=== PATIENT | male | born 1955 | race African-American/Black ===

== ENCOUNTER 2019-02-17 00:55 | Emergency (ER) | payer MEDICARE ==
[~2019-02-17] VITALS: Ht 177.8 cm; Wt 72.6 kg
[2019-02-17 01:00] VITALS: BP 144/65
--- NOTE | 2019-02-17 01:00 | NUR ---
ED Nurse Note: Patient walked into ED c/o sub sternal chest paiin non radiating that occured at 0000, patient took 81 aspirin prior to arrival. Has hx of Bypass, Stent placed 02/06/19, Chronic diastolic heart failure, Hypterthyroid. Alert and oriented, verbally responsive. No SOB. Afebrile. VSS.
[2019-02-17] MEDS ORDERED: TRAZODONE HCL150 MG ORAL (01:06)
[2019-02-17] MEDS ORDERED: CARAFATE1 G1 ORAL (01:06)
[2019-02-17] MEDS ORDERED: FUROSEMIDE40 MG ORAL (01:06)
[2019-02-17] MEDS ORDERED: NITROSTAT0.4 M1 SL (01:06)
[2019-02-17] MEDS ORDERED: PLAVIX75 MG ORAL (01:06)
[2019-02-17] MEDS ORDERED: SIMETHICONE80 MG ORAL (01:06)
[2019-02-17] MEDS ORDERED: METOCLOPRAMIDE10 GM MC (01:06)
[2019-02-17] MEDS ORDERED: LEVOXYL150 MCG ORAL (01:06)
--- NOTE | 2019-02-17 01:07 | NUR ---
ED Nurse Note: IV access establish. Blood drawn and sent to lab.
[2019-02-17] MEDS ORDERED: Nitroglycerin Subl 0.4mg tab SL ONE (01:08)
--- NOTE | 2019-02-17 01:10 | NUR ---
ED Nurse Note: Ntg first dose given.
[2019-02-17] MEDS ORDERED: Nitroglycerin Subl 0.4mg tab SL PRN (01:15)
[2019-02-17 01:28] LABS: ANION GAP 9 mmol/L (5-15); BLOOD UREA NITROGEN 38 mg/dL (7-18); CALCIUM 10.5 MG/DL (8.5-10.1); CARBON DIOXIDE 27 MMOL/L (21-32); CHLORIDE 101 MMOL/L (98-107); CREATININE 2.5 MG/DL (0.55-1.30); POTASSIUM 4.2 MMOL/L (3.5-5.1); SODIUM 137 MMOL/L (136-145)
[2019-02-17 01:33] LABS: INR 0.9 (0.9-1.1)
[2019-02-17 01:44] LABS: ALANINE AMINOTRANSFERASE 14 U/L (12-78); ALBUMIN 3.8 G/DL (3.4-5.0); ALBUMIN/GLOBULIN RATIO 0.7 (1.0-2.7); ALKALINE PHOSPHATASE 71 U/L (46-116); ASPARTATE AMINO TRANSFERASE 14 U/L (15-37); BILIRUBIN,TOTAL 0.6 MG/DL (0.2-1.0); CKMB 1.3 NG/ML (0.0-3.6); CREATINE KINASE 36 U/L (26-308)
[2019-02-17 01:46] LABS: BASOPHILS % (AUTO) 0.8 % (0.0-2.0); EOSINOPHILS % (AUTO) 6.1 % (0.0-3.0); HEMOGLOBIN 11.2 G/DL (14.2-18.0); LYMPHOCYTES % (AUTO) 35.1 % (20.0-45.0); MEAN CORPUSCULAR VOLUME 86 FL (80-99); MONOCYTES % (AUTO) 15.5 % (1.0-10.0); NEUTROPHILS % (AUTO) 42.5 % (45.0-75.0); PLATELET COUNT 308 K/UL (150-450); RED BLOOD COUNT 4.09 M/UL (4.70-6.10); RED CELL DISTRIBUTION WIDTH 13.2 % (11.6-14.8); WHITE BLOOD COUNT 3.8 K/UL (4.8-10.8)
[2019-02-17 02:20] VITALS: BP 144/67
--- NOTE | 2019-02-17 02:20 | NUR ---
AMA: Patient signed AMA form. Explained risk and benefits x3. SEE AMA FORM. Addendum: 02/17/19 at 0234 by HUMERA AMA: IV line and IV band removed. Patient took all his belongings. Accompanied by a family member.
--- NOTE | 2019-02-17 04:22 | Emergency Room Report ---
History of Present Illness General Chief Complaint: Chest Pain Source: Patient Present Illness HPI 63-year-old male presents ED complaining of chest pain. States that symptoms started around midnight. Pressure-like, 7 out of 10, nonradiating. States that he had 3 stents placed in his heart about 10 days ago at [facility]. Denies fevers or chills. Denies cough. No other aggravating relieving factors. Denies any other associated symptoms Allergies: Coded Allergies: SULFA (SULFONAMIDE ANTIBIOTICS) (Verified Allergy, Unknown, 02/17/19) Patient History Past Medical History: HTN, CAD Past Surgical History: other - stent x 3 02/20 Pertinent Family History: none Social History: Denies: smoking, alcohol use, drug use Immunizations: UTD Reviewed Nursing Documentation: PMH: Agreed; PSxH: Agreed Nursing Documentation-PMH Past Medical History: No History, Except For Hx Hypertension: Yes Review of Systems All Other Systems: negative except mentioned in HPI Physical Exam Vital Signs Date Time Temp Pulse Resp B/P (MAP) Pulse Ox O2 Delivery O2 Flow Rate FiO2 02/17/19 00:58 98.2 81 20 151/59 (89) 100 Room Air Sp02 EP Interpretation: reviewed, normal General Appearance: no apparent distress, alert, GCS 15, non-toxic Head: normocephalic, atraumatic Eyes: bilateral eye normal inspection, bilateral eye PERRL ENT: hearing grossly normal, normal pharynx, no angioedema, normal voice Neck: full range of motion, supple/symm/no masses Respiratory: chest non-tender, lungs clear, normal breath sounds, speaking full sentences Cardiovascular #1: regular rate, rhythm, no edema Cardiovascular #2: 2+ carotid (R), 2+ carotid (L), 2+ radial (R), 2+ radial (L) , 2+ dorsalis pedis (R), 2+ dorsalis pedis (L) Gastrointestinal: normal bowel sounds, non tender, soft, non-distended, no guarding, no rebound Rectal: deferred Genitourinary: normal inspection, no CVA tenderness Musculoskeletal: back normal, gait/station normal, normal range of motion, non- tender Neurologic: alert, oriented x3, responsive, motor strength/tone normal, sensory intact, speech normal Psychiatric: judgement/insight normal, memory normal, mood/affect normal, no suicidal/homicidal ideation Reflexes: 3+ bicep (R), 3+ bicep (L), 3+ tricep (R), 3+ tricep (L), 3+ knee (R) , 3+ knee (L) Lymphatic: no adenopathy Procedures Critical Care Time Critical Care Time i. I feel this is a highly complex case requiring extensive working including EKG/Rhythm strip, Xray/CT/US, Blood/urine lab work, repeat exams while in ED, and administration of strong opiates/narcotics for pain control, admission to hospital or close patient follow up. Total time: 30 min bedside evaluation and treatment excludes procedures (EKG). Reason for critical care: elevated troponin. recent cath Possible complications: hypotension, hypertension, LA, shock, arrhythmias, metabolic acidosis, end organ damage, respiratory failure. Interventions: Labs, EKG, chest x-ray, nitro. Discussion with cardiology Course: Patient presenting with chest pain. Improved after nitro. Recent stent placement at [facility]. I discussed with covering doc for Dr. Emanuel. attempted transferred to [facility] however beds unavailable. Discussed option for transfer to [facility] but patient left AMA Consultations: nursing staff, EMS, family Performed by: Dr Doty Tolerated well condition = serious j. because of unstable vital signs this patient had a condition that could potentially threaten life or limb. I feel this is a critical patient who required my full attention while patient was considered critical. Total Critical Care Time excluding procedures was greater than 35 minutes Medical Decision Making Diagnostic Impression: Primary Impression: ACS (acute coronary syndrome) Additional Impression: Renal insufficiency ER Course Hospital Course 63-year-old male presents ED complaining of chest pain Differential diagnoses include: LA/unstable angina, contusion, muscle strain, PTX, rib fracture Clinical course Patient placed on stretcher. on cardiac technician. After initial history and physical I ordered labs, EKG, chest x-ray, NTG labs reviewed- no leukocytosis, hb/hct stable, BUN/Cr elevated, trop 0.068, BNP elevated EKG - repolarization abnormality, ST depressions in lateral leads Chest x-ray- no acute process, sternotomy wires noted Chest pain improved after nitroglycerin. No prior EKG for comparison. Given recent catheterization with stent placement I believe patient would benefit from transfer to facility with interventional cardiology and [place]. I initially contacted Dr Gill. addiction specialist agreed that patient should be transferred however [place] did not have bed availability We attempted to contact [facility] for transfer however patient states he wants to leave AMA. States his chest pain improved after nitro. I attempted to explain to him the reasons for staying but patient declined. Understands the risks of leaving. Patient has competency to make his own decisions. Signed AMA form. I. I feel this is a highly complex case requiring extensive working including EKG/Rhythm strip, Xray/CT/US, Blood/urine lab work, repeat exams while in ED, and administration of strong opiates/narcotics for pain control, admission to hospital or close patient follow up. Diagnosis - ACS, renal insufficiency patient left AMA Labs Test 02/17/19 01:02 White Blood Count 3.8 K/UL (4.8-10.8) Red Blood Count 4.09 M/UL (4.70-6.10) Hemoglobin 11.2 G/DL (14.2-18.0) Hematocrit 35.0 % (42.0-52.0) Mean Corpuscular Volume 86 FL (80-99) Mean Corpuscular Hemoglobin 27.3 PG (27.0-31.0) Mean Corpuscular Hemoglobin Concent 31.9 G/DL (32.0-36.0) Red Cell Distribution Width 13.2 % (11.6-14.8) Platelet Count 308 K/UL (150-450) Mean Platelet Volume 5.6 FL (6.5-10.1) Neutrophils (%) (Auto) 42.5 % (45.0-75.0) Lymphocytes (%) (Auto) 35.1 % (20.0-45.0) Monocytes (%) (Auto) 15.5 % (1.0-10.0) Eosinophils (%) (Auto) 6.1 % (0.0-3.0) Basophils (%) (Auto) 0.8 % (0.0-2.0) Prothrombin Time 10.0 SEC (9.30-11.50) Prothromb Time International Ratio 0.9 (0.9-1.1) Activated Partial Thromboplast Time 25 SEC (23-33) Sodium Level 137 MMOL/L (136-145) Potassium Level 4.2 MMOL/L (3.5-5.1) Chloride Level 101 MMOL/L (98-107) Carbon Dioxide Level 27 MMOL/L (21-32) Anion Gap 9 mmol/L (5-15) Blood Urea Nitrogen 38 mg/dL (7-18) Creatinine 2.5 MG/DL (0.55-1.30) Estimat Glomerular Filtration Rate 26.2 mL/min (>60) Glucose Level 187 MG/DL (74-106) Calcium Level 10.5 MG/DL (8.5-10.1) Total Bilirubin 0.6 MG/DL (0.2-1.0) Aspartate Amino Transf (AST/SGOT) 14 U/L (15-37) Alanine Aminotransferase (ALT/SGPT) 14 U/L (12-78) Alkaline Phosphatase 71 U/L (46-116) Total Creatine Kinase 36 U/L (26-308) Creatine Kinase MB 1.3 NG/ML (0.0-3.6) Creatine Kinase MB Relative Index 3.6 Troponin I 0.068 ng/mL (0.000-0.056) Pro-B-Type Natriuretic Peptide 2394 pg/mL (0-125) Total Protein 9.6 G/DL (6.4-8.2) Albumin 3.8 G/DL (3.4-5.0) Globulin 5.8 g/dL Albumin/Globulin Ratio 0.7 (1.0-2.7) EKG Diagnostic Results Rate: normal Rhythm: NSR ST Segments: other - repolarization abnormality. ST depressions in lateral leads ASA given to the pt in ED: No Rhythm Strip Diag. Results EP Interpretation: yes Rhythm: NSR, no PVC's, no ectopy Chest X-Ray Diagnostic Results Chest X-Ray Diagnostic Results : Chest X-Ray Ordered: Yes # of Views/Limited/Complete: 1 View Indication: Chest Pain EP Interpretation: Yes Interpretation: no consolidation, no effusion, no pneumothorax, no acute cardiopulmonary disease Impression: No acute disease Electronically Signed by: Electronically signed by Karlo Doty MD Last Vital Signs Date Time Temp Pulse Resp B/P (MAP) Pulse Ox O2 Delivery O2 Flow Rate FiO2 02/17/19 02:20 98.2 78 20 144/67 100 Room Air Status: improved Disposition: AGAINST MEDICAL ADVICE Condition: Serious Referrals: NON PHYSICIAN (PCP) Karlo Doty MD Feb 17, 2019 04:22
--- NOTE | 2019-02-17 10:52 | Diagnostic Imaging Report ---
Indication: Chest pain Comparison: None A single view chest radiograph was obtained. Findings: No definite infiltrate or pulmonary vascular congestion identified. Sternotomy noted. The heart is enlarged. The aorta is mildly enlarged consistent with atherosclerotic vascular disease. The bones are osteopenic. Impression: No acute disease
--- NOTE | 2019-02-17 18:33 | Cardiology Report ---
APPROVED REPORT EKG Measurement Heart [id number] Normal sinus rhythm Possible Left atrial enlargement Left bundle branch block Abnormal ECG
== END 2019-02-17 02:20 | disposition left against medical advice (07) ==
LOC: EMR 01:35 → CANBEDREQ 02:19 → EMR 02:20
DX: I24.9 Acute ischemic heart disease, unspecified (principal); N28.9 Disorder of kidney and ureter, unspecified; I10 Essential (primary) hypertension; I25.119 Atherosclerotic heart disease of native coronary artery with unspecified angina pectoris; Z95.5 Presence of coronary angioplasty implant and graft
CPT/HCPCS: 36415; 71045; 80053; 82550; 82553; 83880; 84484; 85025; 85610; 85730; 93005; 99291